=== PATIENT | female | born 1995 | race Caucasian/White ===

== ENCOUNTER 2021-12-12 10:58 | Emergency (ER) | payer MEDICAID ==
[~2021-12-12] VITALS: Ht 154.9 cm; Wt 65.8 kg
[2021-12-12 11:10] VITALS: BP 112/60
--- NOTE | 2021-12-12 11:16 | NUR ---
PATIENT AMBULATED TO BED 8 WITH STEADY GAIT AND WITH CHILD.
[2021-12-12] MEDS ORDERED: ONDANSETRON 4 MG ODT PO ONE (11:25)
--- NOTE | 2021-12-12 11:31 | NUR ---
26 y/o female came in for n/v/d started last night. Patient also states she has dizziness. Patient denies taking any medication for symptoms. Patient denies any pain. Patient denies eating anything different out of her regular diet. PATIENT 20WKS [id number] PMH: DENIES NKA
--- NOTE | 2021-12-12 11:40 | NUR ---
Verbal order for zofran 4mg po recieved from Dr. Worthington. Read back and verified order.
[2021-12-12] MEDS ORDERED: NACL 0.9% 1,000 ML IV ONE (12:05)
--- NOTE | 2021-12-12 13:17 | NUR ---
KRYSTEN collected, handed to CPT Hien.
[2021-12-12 13:27] LABS: APPEARANCE,URINE CLEAR (CLEAR); BILIRUBIN,URINE NEGATIVE (NEGATIVE); BLOOD, URINE NEGATIVE (NEGATIVE); COLOR,URINE BROWN (YELLOW); LEUKOCYTE ESTERASE ,URINE NEGATIVE (NEGATIVE); NITRITE, URINE NEGATIVE (NEGATIVE); UGLUCOSE NEGATIVE (NEGATIVE)
--- NOTE | 2021-12-12 14:13 | NUR ---
Dr. Mohr re-evaluating patient at bedside.
[2021-12-12 14:28] LABS: CALCIUM OXALATE CRYSTALS,UR None Seen /HPF (None Seen); COARSE GRANULAR CASTS,URINE None Seen /LPF (None Seen); FINE GRANULAR CASTS,URINE None Seen /LPF (None Seen); HYALINE CASTS, URINE None Seen /LPF (None Seen); OTHER CASTS, URINE None Seen /LPF (None Seen); OTHER CRYSTALS,URINE None Seen /HPF (None Seen); RBC,URINE 0-5 /HPF (0-5); RED BLOOD CELL CASTS,URINE None Seen /LPF (None Seen); TRICHOMONAS,URINE None Seen /HPF (None Seen); TRIPLE PHOSPHATE CRYSTAL,UR None Seen /HPF (None Seen); URIC ACID CRYSTALS,URINE None Seen /HPF (None Seen); URINE AMORPHOUS URATE None Seen /HPF (None Seen); WAXY CASTS,URINE None Seen /LPF (None Seen); WBC,URINE 0-5 /HPF (0-5); YEAST,URINE None Seen /HPF (None Seen)
[2021-12-12] MEDS ORDERED: DOXY1TCP PO (14:33)
[2021-12-12] MEDS ORDERED: ACETAMINOPHEN EXTRA STRENGTH 500 MG TAB PO ONE (15:15)
--- NOTE | 2021-12-12 15:18 | NUR ---
Patient is feeling unwell. Dr. Mohr was notified.
--- NOTE | 2021-12-12 15:40 | NUR ---
Patient has an elevated temperature of 101.5 temporal scan. Cooling measures applied. Uncovered patient.
--- NOTE | 2021-12-12 15:55 | NUR ---
Patient stated to nurse she is feeling better and is ready to go home. Patient's oral temperature is 98.9.
--- NOTE | 2021-12-12 15:59 | NUR ---
Chart checked and completed. The patient's care was reviewed and supervised by Ayan Moore, RN, RN.
[2021-12-12 16:00] VITALS: BP 87/41
--- NOTE | 2021-12-12 16:00 | NUR ---
Patient discharged with v/s stable. Written and verbal after care instructions given. Patient alert, oriented and verbalized understanding of instructions. Ambulatory with steady gait. All questions addressed prior to discharge. ID band removed. Patient advised to follow up with PMD. Rx of Doxylamine/Pyridoxine HCL given. Opportunity to ask questions provided and answered.
== END 2021-12-12 16:00 | disposition home or self-care (01) ==
LOC: MED 10:58
DX: O21.8 Other vomiting complicating pregnancy (principal); O26.892 Other specified pregnancy related conditions, second trimester; R19.7 Diarrhea, unspecified; Z3A.20 20 weeks gestation of pregnancy; Z79.899 Other long term (current) drug therapy; Z90.49 Acquired absence of other specified parts of digestive tract
CPT/HCPCS: 81001; 96360; 99284; Q0162; J7030

== ENCOUNTER 2022-01-30 16:20 | Observation (INO) | payer MEDICAID ==
[~2022-01-30] VITALS: Ht 154.9 cm; Wt 75.7 kg
[~2022-01-30 16:20] MED LIST: DOXY1TCP PO
[2022-01-30 17:14] VITALS: BP 117/56
[2022-01-30] MEDS ORDERED: PANTOPRAZOLE 40 MG TABEC PO SCH (17:30)
[2022-01-30] MEDS ORDERED: FAMOTIDINE 20 MG TAB PO SCH (17:30)
[2022-01-30] MEDS ORDERED: METOCLOPRAMIDE 10 MG TAB PO PRN (17:35)
[2022-01-30 17:43] LABS: BASOPHILS % (AUTO) 0.2 % (0.0-2.0); EOSINOPHILS # (AUTO) 0.1 K/uL (0-0.4); HEMATOCRIT 35.5 % (36-48); HEMOGLOBIN 11.6 g/dL (12.0-16.0); LYMPHOCYTES # (AUTO) 1.6 K/uL (2.5-16.5); LYMPHOCYTES % (AUTO) 11.4 % (20.5-51.1); MEAN CORPUSCULAR HEMOGLOBIN 29 pg (27-31); MEAN CORPUSCULAR HGB CONC 33 g/dL (33-37); MONOCYTES # (AUTO) 0.7 K/uL (0.8-1.0); MONOCYTES % (AUTO) 4.6 % (1.7-9.3); NEUTROPHILS # (AUTO) 11.7 K/uL (1.8-7.7); NEUTROPHILS % (AUTO) 82.8 % (42.2-75.2); PLATELET COUNT (AUTO) 124 K/uL (140-450); RED BLOOD CELL COUNT(AUTO) 3.98 MIL/uL (4.20-5.40); RED CELL DISTRIBUTION WIDTH 13.8 % (11.6-13.7); WHITE BLOOD COUNT (AUTO) 14.1 K/uL (4.8-10.8)
[2022-01-30 18:02] LABS: ALBUMIN 2.9 g/dL (3.4-5.0); ANION GAP 10.9 (8-16); CARBON DIOXIDE 23.3 mmol/L (21-32); CREATININE 0.4 mg/dL (0.6-1.3); POTASSIUM 3.2 mmol/L (3.5-5.1); TOTAL BILIRUBIN 0.3 mg/dL (0.0-1.0)
[2022-01-30 20:48] LABS: BILIRUBIN,URINE NEGATIVE (NEGATIVE); BLOOD, URINE NEGATIVE (NEGATIVE); LEUKOCYTE ESTERASE ,URINE 2+ (NEGATIVE); NITRITE, URINE NEGATIVE (NEGATIVE); PH,URINE 6.5 (5.0-9.0); UGLUCOSE NEGATIVE (NEGATIVE)
[2022-01-30 20:55] LABS: APPEARANCE,URINE HAZY (CLEAR); COLOR,URINE STRAW (YELLOW)
[2022-01-30 21:16] LABS: RBC,URINE NONE SEEN /HPF (0-5); WBC,URINE 0-5 /HPF (0-5)
== END 2022-01-30 21:10 | disposition home or self-care (01) ==
LOC: MLD 16:20
PROVIDERS: ADMIT Obstetrics & Gynecology; ATTEND Obstetrics & Gynecology
DX: O26.893 Other specified pregnancy related conditions, third trimester (principal); R10.9 Unspecified abdominal pain; Z20.822 Contact with and (suspected) exposure to COVID-19; Z3A.28 28 weeks gestation of pregnancy
CPT/HCPCS: 36415; 59025; 76805; 80053; 81000; 81001; 85025; 87086; 87426; G0378; J8597; Q0092

== ENCOUNTER 2022-12-06 15:27 | Emergency (ER) | payer MEDICAID, OTHER ==
[~2022-12-06] VITALS: Ht 154.9 cm; Wt 66.2 kg
[2022-12-06 15:38] VITALS: BP 115/61
[2022-12-06] MEDS ORDERED: ONDANSETRON 4 MG/2 ML VIAL IVP ONE (15:45)
[2022-12-06] MEDS ORDERED: NACL 0.9% 2,000 ML IV ONE (15:45)
--- NOTE | 2022-12-06 16:20 | NUR ---
AMB BED 9
--- NOTE | 2022-12-06 16:54 | NUR ---
ASSUMED PATIENT CARE, NURSING ASSESSMENT COMPLETED.
[2022-12-06 16:57] LABS: APPEARANCE,URINE CLEAR (CLEAR); BILIRUBIN,URINE NEGATIVE (NEGATIVE); BLOOD, URINE 3+ (NEGATIVE); COLOR,URINE YELLOW (YELLOW); LEUKOCYTE ESTERASE ,URINE 1+ (NEGATIVE); NITRITE, URINE NEGATIVE (NEGATIVE); PH,URINE 5.5 (5.0-9.0); UGLUCOSE NEGATIVE (NEGATIVE)
[2022-12-06 17:07] LABS: BASOPHILS % (AUTO) 0.3 % (0.0-2.0); EOSINOPHILS # (AUTO) 0.2 K/uL (0-0.4); EOSINOPHILS % (AUTO) 2.5 % (0.0-4.0); HEMATOCRIT 41.9 % (36-48); HEMOGLOBIN 14.2 g/dL (12.0-16.0); LYMPHOCYTES # (AUTO) 0.5 K/uL (2.5-16.5); LYMPHOCYTES % (AUTO) 5.5 % (20.5-51.1); MEAN CORPUSCULAR HEMOGLOBIN 28 pg (27-31); MEAN CORPUSCULAR HGB CONC 34 g/dL (33-37); MEAN CORPUSCULAR VOLUME 83.9 fL (80-94); MONOCYTES # (AUTO) 0.6 K/uL (0.8-1.0); MONOCYTES % (AUTO) 6.9 % (1.7-9.3); NEUTROPHILS % (AUTO) 84.8 % (42.2-75.2); PLATELET COUNT (AUTO) 92 K/uL (140-450); RED CELL DISTRIBUTION WIDTH 13.3 % (11.6-13.7); WHITE BLOOD COUNT (AUTO) 8.3 K/uL (4.8-10.8)
[2022-12-06 17:13] LABS: ALBUMIN 4.4 g/dL (3.4-5.0); ANION GAP 16.7 (8-16); CARBON DIOXIDE 21.5 mmol/L (21-32); CREATININE 0.7 mg/dL (0.6-1.3); POTASSIUM 3.2 mmol/L (3.5-5.1); TOTAL BILIRUBIN 1.1 mg/dL (0.0-1.0)
[2022-12-06 17:32] LABS: TRICHOMONAS,URINE None Seen /HPF (None Seen); YEAST,URINE None Seen /HPF (None Seen)
[2022-12-06] MEDS ORDERED: ACETAMINOPHEN EXTRA STRENGTH 500 MG TAB PO ONE (17:50)
[2022-12-06] MEDS ORDERED: ACET-10509 PO (17:52)
[2022-12-06] MEDS ORDERED: ONDA-188 SL (17:52)
[2022-12-06] MEDS ORDERED: CIPR500T4 PO (17:52)
[2022-12-06 18:41] VITALS: BP 103/62
--- NOTE | 2022-12-06 18:45 | NUR ---
Patient discharged with v/s stable. Written and verbal after care instructions given and explained. Patient alert, oriented and verbalized understanding of instructions. Ambulatory with steady gait. All questions addressed prior to discharge. ID band removed. Patient advised to follow up with PMD. Rx of TYLENOL, CIPRO, ZOFRAN given. Patient educated on indication of medication including possible reaction and side effects. Opportunity to ask questions provided and answered.
== END 2022-12-06 18:45 | disposition home or self-care (01) ==
LOC: MED 15:27
DX: A05.9 Bacterial foodborne intoxication, unspecified (principal); N39.0 Urinary tract infection, site not specified; E86.0 Dehydration; E87.6 Hypokalemia; R19.7 Diarrhea, unspecified; Z90.49 Acquired absence of other specified parts of digestive tract; Z79.899 Other long term (current) drug therapy; Z79.2 Long term (current) use of antibiotics
CPT/HCPCS: 36415; 80053; 81001; 81025; 83690; 85025; 87086; 96361; 96374; 99283; J2405; J7030

== ENCOUNTER 2023-02-23 10:54 | Emergency (ER) | payer OTHER ==
[~2023-02-23] VITALS: Ht 154.9 cm; Wt 68.0 kg
[~2023-02-23 10:54] MED LIST changes: +ACET-10509 PO; +CIPR500T4 PO; +ONDA-188 SL
[2023-02-23 11:19] VITALS: BP 117/72
[2023-02-23] MEDS ORDERED: METH4TAB1 PO (12:41)
[2023-02-23] MEDS ORDERED: BENZ-300 PO (12:41)
--- NOTE | 2023-02-23 13:11 | NUR ---
pt swabbed for covid(phi) and strep x2
[2023-02-23 13:12] VITALS: BP 121/70
--- NOTE | 2023-02-23 13:12 | NUR ---
Patient discharged with v/s stable. Written and verbal after care instructions FOR SORE THROAT given and explained. Patient alert, oriented and verbalized understanding of instructions. Ambulatory with steady gait. All questions addressed prior to discharge. ID band removed. Patient advised to follow up with PMD. Rx of BENZOCAINE AND METHYLPREDNISONE DP given. Opportunity to ask questions provided and answered.
== END 2023-02-23 13:12 | disposition home or self-care (01) ==
LOC: MED 10:54
DX: H92.03 Otalgia, bilateral (principal); Z20.822 Contact with and (suspected) exposure to COVID-19
CPT/HCPCS: 87081; 99283

== ENCOUNTER 2023-05-30 21:43 | Emergency (ER) | payer OTHER ==
[~2023-05-30] VITALS: Ht 154.9 cm; Wt 69.4 kg
[~2023-05-30 21:43] MED LIST changes: +BENZ-300 PO; +METH4TAB1 PO
[2023-05-30 21:50] VITALS: BP 115/75; PULSE 102; RESP 17; TEMP 97.9; O2SAT 96
[2023-05-30 22:05] VITALS: O2SAT 96
[2023-05-30] MEDS ORDERED: ONDANSETRON 4 MG/2 ML VIAL IVP ONE (22:15)
[2023-05-30] MEDS ORDERED: ALUMINUM HYD/MAG/SIMETHICONE 30 ML UDC PO ONE (22:15)
[2023-05-30] MEDS ORDERED: MORPHINE SULFATE 4 MG/ML SYR IVP ONE (22:15)
[2023-05-30 22:27] LABS: APPEARANCE,URINE SL CLOUDY (CLEAR); BILIRUBIN,URINE 1+ (NEGATIVE); BLOOD, URINE NEGATIVE (NEGATIVE); COLOR,URINE YELLOW (YELLOW); LEUKOCYTE ESTERASE ,URINE 1+ (NEGATIVE); NITRITE, URINE NEGATIVE (NEGATIVE); PROTEIN,URINE NEGATIVE (NEGATIVE); UGLUCOSE NEGATIVE (NEGATIVE); UROBILINOGEN,URINE 0.2 EU/dL (0.2 - 1)
[2023-05-30 22:27] LABS: BASOPHILS % (AUTO) 0.1 % (0.0-2.0); EOSINOPHILS % (AUTO) 0.3 % (0.0-4.0); HEMATOCRIT 42.9 % (36-48); HEMOGLOBIN 14.7 g/dL (12.0-16.0); LYMPHOCYTES # (AUTO) 0.6 K/uL (2.5-16.5); LYMPHOCYTES % (AUTO) 5.4 % (20.5-51.1); MEAN CORPUSCULAR HEMOGLOBIN 29 pg (27-31); MEAN CORPUSCULAR HGB CONC 34 g/dL (33-37); MEAN CORPUSCULAR VOLUME 85.6 fL (80-94); MONOCYTES # (AUTO) 0.5 K/uL (0.8-1.0); MONOCYTES % (AUTO) 4.7 % (1.7-9.3); NEUTROPHILS # (AUTO) 9.2 K/uL (1.8-7.7); NEUTROPHILS % (AUTO) 89.5 % (42.2-75.2); PLATELET COUNT (AUTO) 91 K/uL (140-450); RED BLOOD CELL COUNT(AUTO) 5.01 MIL/uL (4.20-5.40); RED CELL DISTRIBUTION WIDTH 12.8 % (11.6-13.7); WHITE BLOOD COUNT (AUTO) 10.3 K/uL (4.8-10.8)
[2023-05-30 22:31] LABS: ICTOTEST POSITIVE (NEGATIVE)
[2023-05-30 22:32] LABS: BACTERIA,URINE >30 (MANY) /HPF (None Seen); MUCUS,URINE 1+ /LPF (None Seen); RBC,URINE 0-5 /HPF (0-5)
[2023-05-30] MEDS ORDERED: NACL 0.9% 1,000 ML IV ONE (22:35)
[2023-05-30 22:47] LABS: ALBUMIN 4.4 g/dL (3.4-5.0); ANION GAP 13.7 (8-16); CALCIUM 8.9 mg/dL (8.5-10.1); CARBON DIOXIDE 23.9 mmol/L (21-32); CREATININE 0.9 mg/dL (0.6-1.3); POTASSIUM 3.6 mmol/L (3.5-5.1); TOTAL PROTEIN, SERUM 7.4 g/dL (6.4-8.2)
[2023-05-31] MEDS ORDERED: BEN10 PO (00:50)
[2023-05-31] MEDS ORDERED: ACET-10509 PO (00:50)
[2023-05-31] MEDS ORDERED: CIPR500T4 PO (00:50)
[2023-05-31] MEDS ORDERED: METR-435 PO (00:50)
[2023-05-31] MEDS ORDERED: METOCLOPRAMIDE 10 MG/2 ML INJ VIAL IVP ONE (01:10)
[2023-05-31] MEDS ORDERED: KETOROLAC 15 MG/ML VIAL IVP ONE (01:10)
== END 2023-05-31 01:41 | disposition home or self-care (01) ==
LOC: MED 21:43
DX: N39.0 Urinary tract infection, site not specified (principal); R11.2 Nausea with vomiting, unspecified; Z79.899 Other long term (current) drug therapy
CPT/HCPCS: 36415; 74176; 80053; 81001; 81025; 83690; 85025; 87086; 96361; 96374; 96375; 99285; J1885; J2270; J2405; J2765; J7030

== ENCOUNTER 2024-04-15 21:33 | Emergency (ER) | payer OTHER ==
[~2024-04-15] VITALS: Ht 154.9 cm; Wt 72.6 kg
[~2024-04-15 21:33] MED LIST changes: +BEN10 PO; +METR-435 PO
[2024-04-15 21:34] VITALS: BP 118/59; PULSE 60; RESP 16; TEMP 97.2; O2SAT 99
[2024-04-15] MEDS: FAMOTIDINE 20 MG TAB PO ONE (22:23)
[2024-04-15] MEDS: predniSONE 20 MG TAB PO ONE (22:23)
[2024-04-15] MEDS ORDERED: DIPH25TA53 PO (22:25)
[2024-04-15] MEDS ORDERED: PRED20TA5 PO (22:25)
[2024-04-15] MEDS ORDERED: HYDR28GE5 TP (22:25)
[2024-04-15] MEDS ORDERED: CEPH-588 PO (22:25)
[2024-04-15 22:26] VITALS: O2SAT 99
== END 2024-04-15 22:36 | disposition home or self-care (01) ==
LOC: MED 21:33
DX: L25.9 Unspecified contact dermatitis, unspecified cause (principal); Z79.899 Other long term (current) drug therapy
CPT/HCPCS: 99283; J7512

== ENCOUNTER 2024-04-20 21:38 | Emergency (ER) | payer OTHER ==
[~2024-04-20] VITALS: Ht 154.9 cm; Wt 72.1 kg
[~2024-04-20 21:38] MED LIST changes: +CEPH-588 PO; +DIPH25TA53 PO; +HYDR28GE5 TP; +PRED20TA5 PO
[2024-04-20 21:57] VITALS: BP 123/62; PULSE 80; RESP 16; TEMP 96.5; O2SAT 100
== END 2024-04-21 00:19 | disposition home or self-care (01) ==
LOC: MED 21:38
DX: R61 Generalized hyperhidrosis (principal); T67.9XXA Effect of heat and light, unspecified, initial encounter; Z79.1 Long term (current) use of non-steroidal anti-inflammatories (NSAID); Z79.2 Long term (current) use of antibiotics; Z79.899 Other long term (current) drug therapy; X58.XXXA Exposure to other specified factors, initial encounter; Y93.89 Activity, other specified; Y92.89 Other specified places as the place of occurrence of the external cause; Y99.8 Other external cause status
CPT/HCPCS: 99282

== ENCOUNTER 2024-04-24 09:51 | Emergency (ER) | payer OTHER ==
[~2024-04-24] VITALS: Ht 154.9 cm; Wt 72.6 kg
[2024-04-24 10:24] VITALS: BP 119/77; PULSE 94; RESP 18; TEMP 97.1; O2SAT 100
[2024-04-24] MEDS ORDERED: KEN.025C TP (10:44)
== END 2024-04-24 11:03 | disposition home or self-care (01) ==
LOC: MED 09:51
DX: R21 Rash and other nonspecific skin eruption (principal); L29.9 Pruritus, unspecified; Z79.899 Other long term (current) drug therapy
CPT/HCPCS: 99283